=== PATIENT | male | born 1950 ===

== ENCOUNTER 2020-10-13 19:54 | Inpatient (IN) | payer MEDICARE ==
[2020-10-13 20:35] LABS: Hemoglobin 12.1 g/dL (13.5-17.5); Mean Corpuscular Volume 91.1 fl (81.2-95.1); Mean Platelet Volume 10.9 fl (7.4-10.4); Platelet Count 201 10x3/uL (150-450); RBC Distribution Width 12.4 % (11.5-14.5); Red Blood Cell (RBC) Count 4.03 10x6/uL (4.32-5.72); White Blood Cell (WBC) Count 4.1 10x3/uL (3.5-10.5)
[2020-10-13 20:50] LABS: ALT (SGPT) 348 U/L (8-55); AST (SGOT) 510 U/L (5-34); Albumin 3.5 g/dL (3.4-4.8); Alkaline Phosphatase 55 U/L (40-110); Anion Gap 14 mmol/L (10-20); BUN (Urea Nitrogen) 34 mg/dL (8.4-25.7); Bilirubin, Total 0.4 mg/dL (0.2-1.2); Calc. Creatinine Clearance 0 mL/min (70-130); Calcium 8.6 mg/dL (7.8-10.44); Carbon Dioxide 23 mmol/L (23-31); Chloride 101 mmol/L (98-107); Globulin 3.5 g/dL (2.4-3.5); Glucose 490 mg/dL (80-115); Lipase 78 U/L (8-78); Potassium 4.9 mmol/L (3.5-5.1); Sodium 133 mmol/L (136-145)
[2020-10-13 21:02] LABS: Band 3 % (5-11); Lymphocytes 27 % (21-51); Monocytes 4 % (0-10); Reactive Lymphocytes 4 % (0-10)
[2020-10-13 21:04] LABS: Neutrophil 62 % (42-75)
[2020-10-13 21:05] LABS: Platelet Morphology Comment Appears Adequate; RBC Morphology Normal
[2020-10-13] MEDS ORDERED: Insulin Regular 300 UNITS/3 ML VIAL ONE (21:08)
[2020-10-13] MEDS ORDERED: Azithromycin 250 MG TAB ONE (21:29)
[2020-10-13] MEDS ORDERED: cefTRIAXone\\ROCEPHIN 1 GM VIAL ONE (21:29)
[2020-10-13] MEDS ORDERED: Dextrose 5% in Water 1,000 ML IV PRN (22:22)
[2020-10-13] MEDS ORDERED: Guaifenesin DM 100-10/5 ML UDCUP PO PRN (22:22)
[2020-10-13] MEDS ORDERED: Zolpidem Tartrate 5 MG TAB PO PRN (22:22)
[2020-10-13] MEDS ORDERED: Dextrose 50% Abboject 50 ML SYRINGE SLOW IVP PRN (22:22)
[2020-10-13] MEDS ORDERED: Senokot S 8.6-50 MG TAB PO PRN (22:22)
[2020-10-13] MEDS ORDERED: Calcium Carbonate 500 MG ChewTAB PO PRN (22:22)
[2020-10-13] MEDS ORDERED: Ondansetron PF 4 MG/2 ML Vial IVP PRN (22:22)
[2020-10-13] MEDS ORDERED: HYDROcodone/Acetaminophen 5/325 mg Tablet PO PRN (22:22)
[2020-10-13 23:35] LABS: Acetaminophen Less than 6.0 mcg/mL (10.0-30.0)
[2020-10-13 23:52] LABS: SARS-CoV-2 NAA Rapid Test DETECTED (NotDetected)
[2020-10-14] MEDS ORDERED: Aspirin Chewable 81 MG TAB ONE (04:32)
[2020-10-14] MEDS ORDERED: Nitroglycerin 2% Ointment 1 INCH/1 GM Packet ONE (04:32)
[2020-10-14] MEDS ORDERED: Lorazepam 2 MG/ML VIAL ONE (05:15)
[2020-10-14] MEDS: Dexamethasone 4 mg/ml Vial SLOW IVP SCH (06:28)
[2020-10-14] MEDS: HumaLOG 300 UNITS/3 ML VIAL SC PRN ×4 (06:28→23:25)
[2020-10-14 07:27] LABS: ALT (SGPT) 331 U/L (8-55); AST (SGOT) 414 U/L (5-34); Albumin 3.1 g/dL (3.4-4.8); Alkaline Phosphatase 49 U/L (40-110); Anion Gap 13 mmol/L (10-20); BUN (Urea Nitrogen) 28 mg/dL (8.4-25.7); Bilirubin, Total 0.3 mg/dL (0.2-1.2); Calc. Creatinine Clearance 100 mL/min (70-130); Calcium 8.4 mg/dL (7.8-10.44); Carbon Dioxide 23 mmol/L (23-31); Cardiac Risk 4.5 (Less than 4.5); Chloride 107 mmol/L (98-107); Cholesterol 68 mg/dl (< 200 Desired); Globulin 3.2 g/dL (2.4-3.5); Glucose 258 mg/dL (80-115); HDL Cholesterol 15 mg/dL (>60 Neg Risk); Iron 16 ug/dL (65-175); Iron Binding Capacity, Total 276 mcg/dL (261-462); LDL Cholesterol, Calculated 28 mg/dL; Potassium 4.8 mmol/L (3.5-5.1); Protein, Total 6.3 g/dL (5.8-8.1); Sodium 138 mmol/L (136-145); Triglycerides 126 mg/dL (Less than 150)
[2020-10-14 07:28] LABS: #Monocytes 0.4 10x3/uL (0.0-1.1); #Neutrophils 2.6 10x3/uL (1.5-8.4); %Basophils 0.5 % (0.0-2.0); %Eosinophils 0.9 % (0.0-6.0); %Lymphocytes 29.6 % (18.0-47.0); %Monocytes 8.8 % (0.0-10.0); %Neutrophils 59.7 % (40.0-75.0); Hemoglobin 11.4 g/dL (13.5-17.5); Mean Corpuscular HGB CONC 32.8 g/dL (32.0-36.0); Mean Corpuscular Hemoglobin 30.4 pg (27.0-33.0); Mean Corpuscular Volume 92.8 fl (81.2-95.1); Mean Platelet Volume 11.2 fl (7.4-10.4); Platelet Count 189 10x3/uL (150-450); RBC Distribution Width 12.3 % (11.5-14.5); Red Blood Cell (RBC) Count 3.75 10x6/uL (4.32-5.72); White Blood Cell (WBC) Count 4.3 10x3/uL (3.5-10.5)
[2020-10-14] MEDS ORDERED: hydrALAZINE 20 MG/ML VIAL SLOW IVP PRN (07:36)
[2020-10-14] MEDS ORDERED: Cepastat Lozenges 1 LOZ PO PRN (07:36)
[2020-10-14] MEDS ORDERED: Loperamide HCl 2 MG CAP PO PRN (07:36)
[2020-10-14] MEDS ORDERED: Metoclopramide HCl 10 MG/2 ML VIAL IVP PRN (07:36)
[2020-10-14] MEDS ORDERED: Bisacodyl 5 MG TAB PO PRN (07:36)
[2020-10-14] MEDS ORDERED: Loratadine 10 MG TAB PO PRN (07:36)
[2020-10-14] MEDS ORDERED: GUAIFENESIN SF SOLN 200 MG/10 ML UDCUP PO PRN (07:36)
[2020-10-14] MEDS ORDERED: Sodium Chloride 0.65% Nasal 44 ML BOT EA NARE PRN (07:36)
[2020-10-14] MEDS: glyBURIDE 5 MG TAB PO SCH (08:48)
[2020-10-14] MEDS: Enoxaparin Sodium 40 MG/0.4 ML SYRINGE SC SCH (08:49)
[2020-10-14] MEDS: Gabapentin 300 MG CAP PO SCH ×3 (08:49→20:23)
[2020-10-14] MEDS: Finasteride 5 MG TAB PO SCH (08:49)
[2020-10-14] MEDS: cefTRIAXone\\ROCEPHIN 1 GM in Sodium Chloride 0.9% 100 ML IVPB SCH (08:49)
[2020-10-14] MEDS: Aspirin 325 MG TAB PO SCH (08:49)
[2020-10-14] MEDS: Famotidine 20 MG TAB PO SCH (08:49)
[2020-10-14] MEDS: metFORMIN 500 MG TAB PO SCH ×2 (08:49→16:37)
[2020-10-14] MEDS: NPH, Human Insulin Isophane 300 UNIT/3 ML VIAL SC SCH ×2 (08:50→20:23)
[2020-10-14] MEDS ORDERED: FLU VACC QS2020-21(65YR UP)/PF 240 MCG/0.7 ML SYRINGE IM ONE (09:00)
[2020-10-14 10:01] LABS: Ferritin 2244.55 ng/mL (22-322)
[2020-10-14 10:09] LABS: Hep B Surf Ag Non-Reactive S/CO (NonReactive)
[2020-10-14 10:10] LABS: HBSAg Index 0.18 S/CO (0-0.99)
[2020-10-14 11:34] LABS: Hemoglobin A1c 12.5 % (4.0-6.0)
[2020-10-14 15:39] LABS: Hep A IgM AB Non-Reactive (NonReactive); Hep C IgG Ab Non-Reactive (NonReactive); Hep C Index 0.09 S/CO (0-0.79)
[2020-10-14 15:40] LABS: HBCM Index 0.05 S/CO (0-0.79); Hep A IgM S/CO 0.26 S/CO (0-0.79); Hepatitis B Core IgM Abs Non-Reactive (NonReactive)
[2020-10-14] MEDS: Azithromycin 500 MG in Sodium Chloride 0.9% 250 ML 250 ML IVPB SCH (20:22)
[2020-10-14] MEDS: Benzonatate 100 MG CAP PO PRN (20:24)
[2020-10-14] MEDS: Tamsulosin HCl 0.4 MG CAP PO SCH (20:24)
[2020-10-14 20:32] LABS: Legionella Urinary Ag Negative (Negative); Strep pneumo Urine Ag NEGATIVE (NEGATIVE)
[2020-10-15] MEDS: Dexamethasone 4 mg/ml Vial SLOW IVP SCH (04:57)
[2020-10-15] MEDS: HumaLOG 300 UNITS/3 ML VIAL SC PRN ×4 (04:57→23:45)
[2020-10-15 07:30] LABS: #Monocytes 0.5 10x3/uL (0.0-1.1); #Neutrophils 6.4 10x3/uL (1.5-8.4); %Basophils 0.1 % (0.0-2.0); %Lymphocytes 9.8 % (18.0-47.0); %Monocytes 6.1 % (0.0-10.0); %Neutrophils 83.6 % (40.0-75.0); Hemoglobin 11.6 g/dL (13.5-17.5); Mean Corpuscular HGB CONC 33.4 g/dL (32.0-36.0); Mean Corpuscular Hemoglobin 30.4 pg (27.0-33.0); Mean Corpuscular Volume 91.1 fl (81.2-95.1); Mean Platelet Volume 10.5 fl (7.4-10.4); Platelet Count 245 10x3/uL (150-450); RBC Distribution Width 12.2 % (11.5-14.5); Red Blood Cell (RBC) Count 3.81 10x6/uL (4.32-5.72); White Blood Cell (WBC) Count 7.7 10x3/uL (3.5-10.5)
[2020-10-15 07:49] LABS: ALT (SGPT) 224 U/L (8-55); AST (SGOT) 170 U/L (5-34); Alkaline Phosphatase 49 U/L (40-110); Anion Gap 15 mmol/L (10-20); BUN (Urea Nitrogen) 26 mg/dL (8.4-25.7); Bilirubin, Total 0.3 mg/dL (0.2-1.2); Calc. Creatinine Clearance 116 mL/min (70-130); Calcium 8.7 mg/dL (7.8-10.44); Carbon Dioxide 23 mmol/L (23-31); Chloride 108 mmol/L (98-107); Globulin 3.4 g/dL (2.4-3.5); Glucose 206 mg/dL (80-115); Potassium 4.6 mmol/L (3.5-5.1); Protein, Total 6.4 g/dL (5.8-8.1); Sodium 141 mmol/L (136-145)
[2020-10-15] MEDS: glyBURIDE 5 MG TAB PO SCH (08:44)
[2020-10-15] MEDS: cefTRIAXone\\ROCEPHIN 1 GM in Sodium Chloride 0.9% 100 ML IVPB SCH (08:44)
[2020-10-15] MEDS: Finasteride 5 MG TAB PO SCH (08:44)
[2020-10-15] MEDS: Famotidine 20 MG TAB PO SCH (08:44)
[2020-10-15] MEDS: metFORMIN 500 MG TAB PO SCH ×2 (08:44→16:17)
[2020-10-15] MEDS: Aspirin 325 MG TAB PO SCH (08:44)
[2020-10-15] MEDS: Enoxaparin Sodium 40 MG/0.4 ML SYRINGE SC SCH ×2 (08:44→20:37)
[2020-10-15] MEDS: NPH, Human Insulin Isophane 300 UNIT/3 ML VIAL SC SCH ×2 (08:45→20:34)
[2020-10-15] MEDS: Gabapentin 300 MG CAP PO SCH ×3 (08:45→20:36)
[2020-10-15] MEDS: Benzonatate 100 MG CAP PO PRN (20:35)
[2020-10-15] MEDS: Azithromycin 500 MG in Sodium Chloride 0.9% 250 ML 250 ML IVPB SCH (20:35)
[2020-10-15] MEDS: Tamsulosin HCl 0.4 MG CAP PO SCH (20:35)
[2020-10-15] MEDS: Acetaminophen 325 MG TAB PO PRN (23:45)
[2020-10-16] MEDS: Dexamethasone 4 mg/ml Vial SLOW IVP SCH (06:05)
[2020-10-16] MEDS: HumaLOG 300 UNITS/3 ML VIAL SC PRN ×4 (06:06→23:36)
[2020-10-16] MEDS: NPH, Human Insulin Isophane 300 UNIT/3 ML VIAL SC SCH ×2 (07:46→20:31)
[2020-10-16] MEDS: glyBURIDE 5 MG TAB PO SCH (07:46)
[2020-10-16] MEDS: Aspirin 325 MG TAB PO SCH (07:47)
[2020-10-16] MEDS: Ascorbic Acid 500 mg Chewable Tablet PO SCH (07:47)
[2020-10-16] MEDS: Famotidine 20 MG TAB PO SCH (07:48)
[2020-10-16] MEDS: cefTRIAXone\\ROCEPHIN 1 GM in Sodium Chloride 0.9% 100 ML IVPB SCH (07:48)
[2020-10-16] MEDS: Gabapentin 300 MG CAP PO SCH ×3 (07:48→20:23)
[2020-10-16] MEDS: Finasteride 5 MG TAB PO SCH (07:48)
[2020-10-16] MEDS: Enoxaparin Sodium 40 MG/0.4 ML SYRINGE SC SCH ×2 (07:48→20:22)
[2020-10-16] MEDS: Cholecalciferol (Vitamin D3) 400 UNITS TAB PO SCH (07:48)
[2020-10-16] MEDS: Lisinopril 20 MG TAB PO SCH (07:49)
[2020-10-16] MEDS: Zinc Sulfate 220 MG CAP PO SCH (07:49)
[2020-10-16] MEDS: metFORMIN 500 MG TAB PO SCH ×2 (07:52→15:24)
[2020-10-16 08:26] LABS: ALT (SGPT) 153 U/L (8-55); AST (SGOT) 81 U/L (5-34); Albumin 2.9 g/dL (3.4-4.8); Alkaline Phosphatase 55 U/L (40-110); Anion Gap 11 mmol/L (10-20); BUN (Urea Nitrogen) 27 mg/dL (8.4-25.7); Bilirubin, Total 0.3 mg/dL (0.2-1.2); CRP (Inflammatory) 1.96 mg/dL (= or < 0.5); Calc. Creatinine Clearance 115 mL/min (70-130); Calcium 8.5 mg/dL (7.8-10.44); Carbon Dioxide 25 mmol/L (23-31); Chloride 109 mmol/L (98-107); Globulin 3.3 g/dL (2.4-3.5); Glucose 148 mg/dL (80-115); Potassium 3.9 mmol/L (3.5-5.1); Protein, Total 6.2 g/dL (5.8-8.1); Sodium 141 mmol/L (136-145)
[2020-10-16 08:41] LABS: #Monocytes 0.5 10x3/uL (0.0-1.1); %Basophils 0.1 % (0.0-2.0); %Eosinophils 0.1 % (0.0-6.0); %Lymphocytes 13.6 % (18.0-47.0); %Monocytes 6.8 % (0.0-10.0); %Neutrophils 79.1 % (40.0-75.0); Hemoglobin 11.2 g/dL (13.5-17.5); Mean Corpuscular Hemoglobin 30.2 pg (27.0-33.0); Mean Corpuscular Volume 91.4 fl (81.2-95.1); Mean Platelet Volume 10.7 fl (7.4-10.4); Platelet Count 275 10x3/uL (150-450); RBC Distribution Width 12.3 % (11.5-14.5); Red Blood Cell (RBC) Count 3.71 10x6/uL (4.32-5.72); White Blood Cell (WBC) Count 7.5 10x3/uL (3.5-10.5)
[2020-10-16] MEDS: Azithromycin 500 MG in Sodium Chloride 0.9% 250 ML 250 ML IVPB SCH (20:22)
[2020-10-16] MEDS: Tamsulosin HCl 0.4 MG CAP PO SCH (20:23)
[2020-10-16] MEDS: Acetaminophen 325 MG TAB PO PRN (20:23)
[2020-10-16] MEDS: Benzonatate 100 MG CAP PO PRN (20:23)
[2020-10-17] MEDS: Dexamethasone 4 mg/ml Vial SLOW IVP SCH (05:22)
[2020-10-17 07:05] LABS: #Monocytes 0.5 10x3/uL (0.0-1.1); #Neutrophils 5.2 10x3/uL (1.5-8.4); %Lymphocytes 18.9 % (18.0-47.0); %Monocytes 6.9 % (0.0-10.0); %Neutrophils 73.9 % (40.0-75.0); Hemoglobin 11.3 g/dL (13.5-17.5); Mean Corpuscular HGB CONC 32.8 g/dL (32.0-36.0); Mean Corpuscular Hemoglobin 29.9 pg (27.0-33.0); Mean Corpuscular Volume 91.3 fl (81.2-95.1); Mean Platelet Volume 10.7 fl (7.4-10.4); Platelet Count 317 10x3/uL (150-450); RBC Distribution Width 12.2 % (11.5-14.5); Red Blood Cell (RBC) Count 3.78 10x6/uL (4.32-5.72)
[2020-10-17 07:31] LABS: ALT (SGPT) 124 U/L (8-55); AST (SGOT) 71 U/L (5-34); Albumin 2.9 g/dL (3.4-4.8); Alkaline Phosphatase 56 U/L (40-110); Anion Gap 12 mmol/L (10-20); BUN (Urea Nitrogen) 24 mg/dL (8.4-25.7); Bilirubin, Total 0.2 mg/dL (0.2-1.2); CRP (Inflammatory) 1.41 mg/dL (= or < 0.5); Calc. Creatinine Clearance 138 mL/min (70-130); Calcium 8.8 mg/dL (7.8-10.44); Carbon Dioxide 26 mmol/L (23-31); Chloride 109 mmol/L (98-107); Globulin 3.4 g/dL (2.4-3.5); Glucose 157 mg/dL (80-115); Protein, Total 6.3 g/dL (5.8-8.1); Sodium 143 mmol/L (136-145)
[2020-10-17] MEDS: Famotidine 20 MG TAB PO SCH (09:27)
[2020-10-17] MEDS: Finasteride 5 MG TAB PO SCH (09:27)
[2020-10-17] MEDS: metFORMIN 500 MG TAB PO SCH (09:27)
[2020-10-17] MEDS: Enoxaparin Sodium 40 MG/0.4 ML SYRINGE SC SCH (09:27)
[2020-10-17] MEDS: cefTRIAXone\\ROCEPHIN 1 GM in Sodium Chloride 0.9% 100 ML IVPB SCH (09:27)
[2020-10-17] MEDS: Gabapentin 300 MG CAP PO SCH (09:27)
[2020-10-17] MEDS: Ascorbic Acid 500 mg Chewable Tablet PO SCH (09:27)
[2020-10-17] MEDS: Aspirin 325 MG TAB PO SCH (09:27)
[2020-10-17] MEDS: glyBURIDE 5 MG TAB PO SCH (09:27)
[2020-10-17] MEDS: Cholecalciferol (Vitamin D3) 400 UNITS TAB PO SCH (09:27)
[2020-10-17] MEDS: NPH, Human Insulin Isophane 300 UNIT/3 ML VIAL SC SCH (09:28)
[2020-10-17] MEDS: Lisinopril 20 MG TAB PO SCH (09:28)
[2020-10-17] MEDS: Zinc Sulfate 220 MG CAP PO SCH (09:28)
[2020-10-17 09:33] VITALS: TEMP 98.6
[2020-10-17 12:37] VITALS: BP 128/65
[2020-10-17] MEDS: HumaLOG 300 UNITS/3 ML VIAL SC PRN (13:24)
[2020-10-18] MEDS ORDERED: FLU VACC QS2020-21(65YR UP)/PF 240 MCG/0.7 ML SYRINGE IM ONE (09:00)
== END 2020-10-17 16:00 | disposition home or self-care (01) | DRG 177 ==
LOC: CSHERS 19:54 → CSHTELE 10-14 04:50 → UNDOADMIN 10-14 04:50 → CSHTELE 10-14 14:50 → UNDOADMIN 10-14 14:50 → CSHTELE 10-17 04:50 → UNDOADMIN 10-17 04:50 → UNDODISIN 10-17 11:54
PROVIDERS: ADMIT Student in an Organized Health Care Education/Training Program; ATTEND Family Medicine
PROC: 8E0ZXY6 Isolation (ICD-10-PCS; principal; 2020-10-14)
DX: U07.1 COVID-19 (principal); J12.82 Pneumonia due to coronavirus disease 2019; J96.01 Acute respiratory failure with hypoxia; N17.9 Acute kidney failure, unspecified; E78.5 Hyperlipidemia, unspecified; E11.65 Type 2 diabetes mellitus with hyperglycemia; Z79.4 Long term (current) use of insulin; N40.0 Benign prostatic hyperplasia without lower urinary tract symptoms; D63.8 Anemia in other chronic diseases classified elsewhere; I25.10 Atherosclerotic heart disease of native coronary artery without angina pectoris; I12.9 Hypertensive chronic kidney disease with stage 1 through stage 4 chronic kidney disease, or unspecified chronic kidney disease; N18.9 Chronic kidney disease, unspecified; E11.22 Type 2 diabetes mellitus with diabetic chronic kidney disease; E11.40 Type 2 diabetes mellitus with diabetic neuropathy, unspecified
CPT/HCPCS: 36415; 36416; 71045; 76705; 80053; 80061; 80074; 80143; 82728; 83036; 83540; 83550; 83605; 83690; 84145; 85025; 85379; 86140; 87040; 87449; 87899; 93005; 93970; 94760; 94799; 96365; 96375; 80307; J0456; J0696; J1100; J1650; J1815; J2060; J3490; J7050; U0002